=== PATIENT | female | born 1955 | race Caucasian/White ===

== ENCOUNTER 2016-09-06 09:09 | Inpatient (IN) | payer OTHER ==
[~2016-09-06] VITALS: Ht 157.5 cm; Wt 72.8 kg
[~2016-09-06 09:09] MED LIST: ASPI-496 PO; BACITRACIN 50,000 UNIT ONE; BIOT5CAP2 PO; BUPIVACAINE/PF-EPI 0.5% 1:200K ONE; CIPR500T3 PO; DICL100G29 TP; FERR325T20 PO; GABA600T2 PO; INUL1TAB4 PO; MULT-658 PO; NAPR500T3 PO; OMEG1CAP12 PO; OXYB5TAB7 PO; OXYC1TAB9 PO; PREG225C PO; THROMBIN 5,000 UNIT VIAL TP ONE; TIZA4CAP PO; VANCOMYCIN 1,000 MG ONE; ZONI50CA2 PO
[2016-09-06 09:39] VITALS: BP 132/87
[2016-09-06] MEDS ORDERED: LIDOCAINE 1%, 2ML ONE (09:41)
[2016-09-06] MEDS ORDERED: LACTATED RINGERS 1,000 ML IV SCH (09:59)
[2016-09-06] MEDS ORDERED: LIDOCAINE 1%, 2ML SQ PRN (10:00)
[2016-09-06] MEDS ORDERED: MIDAZOLAM 1 MG/ML, 2ML ONE (11:39)
[2016-09-06] MEDS ORDERED: FENTANYL PF 250 MCG/5ML ONE (11:39)
[2016-09-06] MEDS ORDERED: REMIFENTANIL 2 MG ONE (12:07)
[2016-09-06] MEDS ORDERED: CLINDAMYCIN 150 MG/ML, 6ML ONE (12:37)
[2016-09-06] MEDS ORDERED: ONDANSETRON 2MG/ML, 2ML ONE (12:45)
[2016-09-06] MEDS ORDERED: METOPROLOL 1 MG/ML, 5ML ONE (12:45)
[2016-09-06] MEDS ORDERED: METOCLOPRAMIDE 5 MG/ML, 2ML ONE (12:45)
[2016-09-06] MEDS ORDERED: PROPOFOL 10 MG/ML, 50ML ONE (12:45)
[2016-09-06] MEDS ORDERED: PHENYLEPHRINE 10 MG/ML ONE (12:45)
[2016-09-06] MEDS ORDERED: ROCURONIUM 10 MG/ML ONE (12:45)
[2016-09-06] MEDS ORDERED: DEXAMETHASONE 4 MG/ML, 5ML ONE (12:45)
[2016-09-06] MEDS ORDERED: MIDAZOLAM 1 MG/ML, 2ML IV PRN (13:30)
[2016-09-06] MEDS ORDERED: PROMETHAZINE 25 MG/ML, 1ML IV PRN (13:30)
[2016-09-06] MEDS ORDERED: OXYcodone 5 MG/5 ML ORAL.SOL UDC PO PRN (13:30)
[2016-09-06] MEDS ORDERED: MEPERIDINE/PF 25MG/0.5ML IVPush PRN (13:30)
[2016-09-06] MEDS ORDERED: HYDROmorphone 1 MG/ML, 1ML IV PRN (13:30)
[2016-09-06] MEDS ORDERED: LABETALOL 5MG/ML, 20ML IV PRN (13:30)
[2016-09-06] MEDS ORDERED: hydrALAzine 20 MG/ML, 1ML IV PRN (13:30)
[2016-09-06] MEDS ORDERED: ONDANSETRON 2MG/ML, 2ML IVPush PRN (13:30)
[2016-09-06] MEDS ORDERED: HEPARIN 1,000 UNITS/ML, 30ML IVPB ONE (15:08)
[2016-09-06] MEDS ORDERED: HEPARIN 1,000 UNITS/ML, 30ML ONE (15:12)
[2016-09-06] MEDS ORDERED: HYDROmorphone 2 MG/ML, 1ML ONE (15:56)
[2016-09-06] MEDS ORDERED: BACITRACIN 50,000 UNIT IRRIG ONE (16:09)
[2016-09-06] MEDS ORDERED: DIPHENHYDRAMINE 25 MG CAPSULE PO PRN (17:30)
[2016-09-06] MEDS ORDERED: DIAZEPAM 5 MG/ML, 2ML IVPush PRN (17:30)
[2016-09-06] MEDS ORDERED: DIPHENHYDRAMINE 50 MG/ML, 1ML IVPush PRN (17:30)
[2016-09-06] MEDS ORDERED: MAGNESIUM HYDROXIDE 8%, 30ML UDC PO PRN (17:30)
[2016-09-06] MEDS ORDERED: MORPHINE SULFATE 4 MG/ML, 1ML IVPush PRN (17:30)
[2016-09-06] MEDS ORDERED: BISACODYL 10 MG SUPP PR PRN (17:30)
[2016-09-06] MEDS ORDERED: PHARMACY MAY ADJ FOR RENAL FX MC PRN (17:30)
[2016-09-06] MEDS ORDERED: MEPERIDINE/PF 100 MG/ML IM PRN (17:30)
[2016-09-06] MEDS ORDERED: DIAZEPAM 5 MG TABLET PO PRN (17:30)
[2016-09-06] MEDS ORDERED: FENTANYL PF 100 MCG/2ML ONE (17:39)
[2016-09-06] MEDS ORDERED: HYDROmorphone PCA 30 MG/30 ML ONE (17:40)
[2016-09-06] MEDS ORDERED: OXYcodone 5 MG/5 ML ORAL.SOL UDC ONE (17:40)
[2016-09-06] MEDS: FENTANYL PF 100 MCG/2ML IV PRN ×2 (17:46→18:23)
[2016-09-06] MEDS: HYDROmorphone PCA 30 MG/30 ML IV PRN ×3 (17:51→22:56)
[2016-09-06 19:04] VITALS: BP 115/78
[2016-09-06] MEDS: NS + 20MEQ KCL 1,000 ML IV SCH ×2 (19:29→23:07)
[2016-09-06] MEDS ORDERED: GABAPENTIN 400 MG CAPSULE PO SCH (21:00)
[2016-09-06] MEDS: CLINDAMYCIN PMX 600MG/50ML 50 ML IV SCH (21:05)
[2016-09-06] MEDS: TIZANIDINE 4MG TABLET PO SCH (21:09)
[2016-09-06] MEDS: OXYBUTYNIN CHLORIDE 5 MG TABLET PO SCH (21:09)
[2016-09-06] MEDS: SODIUM CHLORIDE FLUSH 10ML SYR IVF SCH (21:11)
[2016-09-07] VITALS (8 sets, daily range): BP systolic 70–125; BP diastolic 45–82
[2016-09-07] MEDS ORDERED: SODIUM CHLORIDE 0.9%, 500ML IVBOLUS ONE
[2016-09-07 05:43] LABS: HEMOGLOBIN 10.3 g/dL (11.7-16.4)
[2016-09-07] MEDS: CLINDAMYCIN PMX 600MG/50ML 50 ML IV SCH (05:51)
[2016-09-07] MEDS: TIZANIDINE 4MG TABLET PO SCH ×3 (05:51→21:38)
[2016-09-07 05:54] LABS: BLOOD UREA NITROGEN 18 mg/dL (7-18)
[2016-09-07] MEDS: SODIUM CHLORIDE FLUSH 10ML SYR IVF SCH ×2 (08:06→21:00)
[2016-09-07] MEDS: ONDANSETRON 2MG/ML, 2ML IVPush PRN ×3 (08:11→21:38)
[2016-09-07] MEDS: ZONISAMIDE 50 MG CAPSULE PO SCH (09:45)
[2016-09-07] MEDS: GABAPENTIN 300 MG CAPSULE PO SCH ×3 (09:45→21:39)
[2016-09-07] MEDS: SENNA/DOCUSATE TABLET PO SCH (09:45)
[2016-09-07] MEDS: OXYBUTYNIN CHLORIDE 5 MG TABLET PO SCH ×2 (09:45→21:38)
[2016-09-07] MEDS: PROMETHAZINE 25 MG/ML, 1ML IM PRN ×2 (09:49→17:42)
[2016-09-07] MEDS: NS + 20MEQ KCL 1,000 ML IV SCH (12:41)
[2016-09-07] MEDS: OXYcodone/APAP 10/325MG TABLET PO PRN (13:57)
[2016-09-08] MEDS: NS + 20MEQ KCL 1,000 ML IV SCH ×3 (00:47→17:11)
[2016-09-08 02:33] VITALS: BP 109/57
[2016-09-08] MEDS: TIZANIDINE 4MG TABLET PO SCH ×3 (05:14→20:13)
[2016-09-08 05:40] LABS: HEMOGLOBIN 9.4 g/dL (11.7-16.4)
[2016-09-08 05:46] LABS: BLOOD UREA NITROGEN 13 mg/dL (7-18)
[2016-09-08 06:45] VITALS: BP 85/55
[2016-09-08] MEDS: SODIUM CHLORIDE FLUSH 10ML SYR IVF SCH ×2 (07:57→20:16)
[2016-09-08] MEDS: SENNA/DOCUSATE TABLET PO SCH (07:58)
[2016-09-08] MEDS: GABAPENTIN 300 MG CAPSULE PO SCH ×3 (07:58→20:13)
[2016-09-08] MEDS: ZONISAMIDE 50 MG CAPSULE PO SCH (07:58)
[2016-09-08] MEDS: OXYBUTYNIN CHLORIDE 5 MG TABLET PO SCH ×2 (07:58→20:13)
[2016-09-08] MEDS ORDERED: SODIUM CHLORIDE 0.9% 1,000ML IV ONE (11:00)
[2016-09-08 12:56] VITALS: BP 109/64
[2016-09-08 18:42] VITALS: BP 121/77
[2016-09-08] MEDS: OXYcodone/APAP 10/325MG TABLET PO PRN (19:38)
[2016-09-09] MEDS: OXYcodone/APAP 10/325MG TABLET PO PRN ×5 (00:38→22:05)
[2016-09-09 00:59] VITALS: BP 115/72
[2016-09-09] MEDS: NS + 20MEQ KCL 1,000 ML IV SCH ×2 (02:54→14:47)
[2016-09-09] MEDS: TIZANIDINE 4MG TABLET PO SCH ×3 (04:39→18:02)
[2016-09-09 05:47] LABS: HEMOGLOBIN 8.5 g/dL (11.7-16.4)
[2016-09-09 06:05] LABS: BLOOD UREA NITROGEN 10 mg/dL (7-18)
[2016-09-09 07:01] VITALS: BP 93/62
[2016-09-09] MEDS: ZONISAMIDE 50 MG CAPSULE PO SCH (08:26)
[2016-09-09] MEDS: SENNA/DOCUSATE TABLET PO SCH (08:26)
[2016-09-09] MEDS: OXYBUTYNIN CHLORIDE 5 MG TABLET PO SCH ×2 (08:27→22:04)
[2016-09-09] MEDS: GABAPENTIN 300 MG CAPSULE PO SCH ×3 (08:27→22:04)
[2016-09-09] MEDS: SODIUM CHLORIDE FLUSH 10ML SYR IVF SCH ×2 (08:27→22:07)
[2016-09-09 13:36] VITALS: BP 110/69
[2016-09-09 19:05] VITALS: BP 87/55
[2016-09-09 19:49] VITALS: BP 94/57
[2016-09-10 01:16] VITALS: BP 122/80
[2016-09-10] MEDS: OXYcodone/APAP 10/325MG TABLET PO PRN ×3 (03:49→10:17)
[2016-09-10] MEDS: TIZANIDINE 4MG TABLET PO SCH (05:32)
[2016-09-10 06:08] LABS: HEMOGLOBIN 8.9 g/dL (11.7-16.4)
[2016-09-10 06:26] LABS: BLOOD UREA NITROGEN 12 mg/dL (7-18)
[2016-09-10 06:50] VITALS: BP 90/64
[2016-09-10] MEDS: SENNA/DOCUSATE TABLET PO SCH (09:26)
[2016-09-10] MEDS: ZONISAMIDE 50 MG CAPSULE PO SCH (09:27)
[2016-09-10] MEDS: GABAPENTIN 300 MG CAPSULE PO SCH (09:27)
[2016-09-10] MEDS: SODIUM CHLORIDE FLUSH 10ML SYR IVF SCH (09:28)
[2016-09-10] MEDS: OXYBUTYNIN CHLORIDE 5 MG TABLET PO SCH (09:28)
[2016-09-10] MEDS: NS + 20MEQ KCL 1,000 ML IV SCH ×2 (10:00)
[2016-09-10] MEDS ORDERED: OXYC-229 PO (13:42)
[2016-09-10] MEDS ORDERED: TIZA4TAB9 PO (13:43)
== END 2016-09-10 14:04 | disposition home or self-care (01) | DRG 460 ==
LOC: ORIP 09:09 → 4NOR 18:57 → DCLOUNGE 09-10 13:35
PROVIDERS: ADMIT Neurological Surgery; ATTEND Neurological Surgery
PROC: 0SG1071 Fusion of 2 or more Lumbar Vertebral Joints with Autologous Tissue Substitute, Posterior Approach, Posterior Column, Open Approach (ICD-10-PCS; 2016-09-06)
PROC: 0QP004Z Removal of Internal Fixation Device from Lumbar Vertebra, Open Approach (ICD-10-PCS; 2016-09-06)
PROC: 0JPT0MZ Removal of Stimulator Generator from Trunk Subcutaneous Tissue and Fascia, Open Approach (ICD-10-PCS; 2016-09-06)
PROC: BR191ZZ Fluoroscopy of Lumbar Spine using Low Osmolar Contrast (ICD-10-PCS; 2016-09-06)
PROC: 00QT0ZZ Repair Spinal Meninges, Open Approach (ICD-10-PCS; 2016-09-06)
PROC: 01PY0MZ Removal of Neurostimulator Lead from Peripheral Nerve, Open Approach (ICD-10-PCS; 2016-09-06)
PROC: 01NB0ZZ Release Lumbar Nerve, Open Approach (ICD-10-PCS; principal; 2016-09-06 13:00)
DX: M48.06 Spinal stenosis, lumbar region (principal); G97.41 Accidental puncture or laceration of dura during a procedure; Z98.1 Arthrodesis status; M41.80 Other forms of scoliosis, site unspecified; G43.909 Migraine, unspecified, not intractable, without status migrainosus; M19.90 Unspecified osteoarthritis, unspecified site; Z85.528 Personal history of other malignant neoplasm of kidney; Z90.5 Acquired absence of kidney; Z90.710 Acquired absence of both cervix and uterus; Z90.49 Acquired absence of other specified parts of digestive tract; Z88.1 Allergy status to other antibiotic agents; Z82.61 Family history of arthritis; Z83.3 Family history of diabetes mellitus; Z82.3 Family history of stroke; Z82.49 Family history of ischemic heart disease and other diseases of the circulatory system; Z82.5 Family history of asthma and other chronic lower respiratory diseases
CPT/HCPCS: 36415; 72100; 77001; 80048; 85025; 86850; 86900; 95938; 95941; C1713; J1100; J1170; J1644; J2250; J2405; J2550; J2704; J3010; J3370; J3480; J3490; C1762; C1781; J2370; J2765; J7030; J7040; J7120

== ENCOUNTER 2018-04-03 12:30 | Emergency (ER) | payer OTHER ==
[~2018-04-03] VITALS: Ht 157.5 cm; Wt 73.7 kg
[~2018-04-03 12:30] MED LIST changes: -BACITRACIN 50,000 UNIT ONE; -BIOT5CAP2 PO; +BIOT5CAP3 PO; -BUPIVACAINE/PF-EPI 0.5% 1:200K ONE; +FERR325T18 PO; -FERR325T20 PO; +NAPR-685 PO; -NAPR500T3 PO; -OMEG1CAP12 PO; +OMEG1CAP23 PO; +OXYC-307 PO; +OXYC-432 PO; -OXYC1TAB9 PO; -THROMBIN 5,000 UNIT VIAL TP ONE; +TIZA4TAB9 PO; -VANCOMYCIN 1,000 MG ONE
[2018-04-03 13:48] VITALS: BP 120/73
[2018-04-03 14:01] LABS: MICROSCOPIC NOT IND
[2018-04-03 14:06] LABS: CULTURE INDICATED? NO
[2018-04-03 15:58] LABS: CLUE CELLS NONE SEEN (NONE SEEN); WET PREP WBCS MODERATE (FEW)
== END 2018-04-03 16:15 | disposition home or self-care (01) ==
LOC: ED 16:00
DX: N89.8 Other specified noninflammatory disorders of vagina (principal); Z90.49 Acquired absence of other specified parts of digestive tract
CPT/HCPCS: 81003; 87210; 87808; 99284

== ENCOUNTER → 2018-09-01 | Outpatient (CLI) | payer MEDICARE ==
[~2018-09-01] MED LIST changes: -GABA600T2 PO; +GABA600T7 PO; +OXYC-306 PO
[2018-09-01 11:15] LABS: MICROSCOPIC NOT IND
[2018-09-01 11:16] LABS: CULTURE INDICATED? NO
[2018-09-01 11:19] LABS: BASOPHILS # (AUTO) 0.04 x10^3/uL (0-0.1); BASOPHILS % (AUTO) 1 % (0-1); EOSINOPHILS # (AUTO) 0.19 x10^3/uL (0-0.4); EOSINOPHILS % (AUTO) 4 % (1-7); LYMPHOCYTES # (AUTO) 2.67 x10^3/uL (1-3.4); LYMPHOCYTES % (AUTO) 50 % (22-44); MD NO; MEAN CORPUSCULAR HEMOGLOBIN 28.4 pg (27.0-34.8); MEAN CORPUSCULAR HGB CONC 33.4 g/dL (32.4-35.8); MEAN CORPUSCULAR VOLUME 85.1 fL (80-100); MONOCYTES # (AUTO) 0.37 x10^3/uL (0.2-0.8); MONOCYTES % (AUTO) 7 % (2-9); NEUTROPHILS # (AUTO) 2.06 x10^3/uL (1.8-6.8); NEUTROPHILS % (AUTO) 39 % (42-75); PLATELET COUNT 364 x10^3/uL (130-400); RED BLOOD COUNT 4.03 x10^6/uL (3.82-5.3); RED CELL DISTRIBUTION WIDTH 14.1 % (9.6-15.2)
[2018-09-01 11:26] LABS: ANION GAP 6 mmol/L (5-15); CALCIUM 8.9 mg/dL (8.5-10.1); CHLORIDE 110 mmol/L (98-107); CREATININE 1.04 mg/dL (0.55-1.02)
[2018-09-01 11:38] LABS: INTERNATIONAL NORMALIZED RATIO 0.95 (0.93-1.1)
== END | disposition home or self-care (01) ==
LOC: STAR 09:53
PROVIDERS: ATTEND Neurological Surgery
DX: Z01.818 Encounter for other preprocedural examination (principal); M48.061 Spinal stenosis, lumbar region without neurogenic claudication
CPT/HCPCS: 36415; 71046; 80048; 81003; 85025; 85610; 85730; 93005

== ENCOUNTER 2018-10-08 10:58 | Inpatient (IN) | payer MEDICARE, OTHER ==
[~2018-10-08] VITALS: Ht 154.9 cm; Wt 76.4 kg
[~2018-10-08 10:58] MED LIST changes: +BACITRACIN 50,000 UNIT ONE; +BUPIVACAINE/PF 0.25% ONE; +EPINEPHRINE 1 MG/ML, 1ML ONE; +THROMBIN 5,000 UNIT VIAL TP ONE; +VANCOMYCIN 1,000 MG ONE
[2018-10-08] MEDS ORDERED: LACTATED RINGERS 1,000 ML IV SCH (11:09)
[2018-10-08] MEDS ORDERED: FENTANYL PF 250 MCG/5ML ONE ×2 (15:03)
[2018-10-08] MEDS ORDERED: MIDAZOLAM 1 MG/ML, 2ML ONE ×2 (15:03)
[2018-10-08] MEDS ORDERED: HEPARIN 1,000 UNITS/ML, 30ML ONE (15:04)
[2018-10-08] MEDS ORDERED: CLINDAMYCIN 150 MG/ML, 6ML ONE (15:23)
[2018-10-08] MEDS ORDERED: BUPIVACAINE/PF-EPI 0.25% 1:200K INFIL ONE ×2 (15:58→15:59)
[2018-10-08] MEDS ORDERED: DIAZEPAM 5 MG/ML, 2ML IVPush PRN (16:00)
[2018-10-08] MEDS ORDERED: OXYcodone 5 MG/5 ML ORAL.SOL UDC PO PRN (16:00)
[2018-10-08] MEDS ORDERED: HALOPERIDOL 5 MG/ML IV PRN (16:00)
[2018-10-08] MEDS ORDERED: ACETAMINOPHEN 325 MG TABLET PO PRN (16:00)
[2018-10-08] MEDS ORDERED: PROMETHAZINE 25 MG/ML, 1ML IV PRN (16:00)
[2018-10-08] MEDS ORDERED: MEPERIDINE/PF 25MG/0.5ML IVPush PRN (16:00)
[2018-10-08] MEDS ORDERED: hydrALAzine 20 MG/ML, 1ML IV PRN (16:00)
[2018-10-08] MEDS ORDERED: ROCURONIUM 10MG/ML,5ML ONE (16:05)
[2018-10-08] MEDS ORDERED: PROPOFOL 10 MG/ML, 20ML ONE (16:05)
[2018-10-08] MEDS ORDERED: PHENYLEPHRINE 10 MG/ML ONE (16:05)
[2018-10-08] MEDS ORDERED: LIDOCAINE-MPF 2% ,5ML ONE (16:05)
[2018-10-08] MEDS ORDERED: ONDANSETRON 2MG/ML, 2ML ONE (16:05)
[2018-10-08] MEDS ORDERED: DEXAMETHASONE 4 MG/ML, 1ML ONE (16:05)
[2018-10-08] MEDS ORDERED: FENTANYL PF 100 MCG/2ML ONE ×3 (17:12→18:32)
[2018-10-08] MEDS ORDERED: OXYcodone 5 MG/5 ML ORAL.SOL UDC ONE (17:23)
[2018-10-08] MEDS ORDERED: HYDROmorphone 2 MG/ML, 1ML ONE (17:23)
[2018-10-08] MEDS ORDERED: HYDROmorphone PCA 30 MG/30 ML IV PRN (17:30)
[2018-10-08] MEDS: HYDROmorphone 2 MG/ML, 1ML IVPush PRN ×4 (17:33→17:57)
[2018-10-08] MEDS: FENTANYL PF 100 MCG/2ML IV PRN ×2 (17:40→17:48)
[2018-10-08 18:30] VITALS: BP 123/74
[2018-10-08] MEDS ORDERED: PHARMACY MAY ADJ FOR RENAL FX MC PRN (19:00)
[2018-10-08] MEDS ORDERED: HYDROcodone/APAP 10/325 MG TABLET PO PRN (19:30)
[2018-10-08] MEDS ORDERED: morphine SULFATE 10 MG/ML, 1ML IV PRN (19:30)
[2018-10-08] MEDS ORDERED: MAGNESIUM HYDROXIDE 8%, 30ML UDC PO PRN (19:30)
[2018-10-08] MEDS ORDERED: ONDANSETRON 2MG/ML, 2ML IV PRN (19:30)
[2018-10-08] MEDS ORDERED: DIPHENHYDRAMINE 50 MG/ML, 1ML IVPush PRN (19:30)
[2018-10-08] MEDS ORDERED: PROMETHAZINE 25 MG/ML, 1ML IM PRN (19:30)
[2018-10-08] MEDS ORDERED: DIPHENHYDRAMINE 25 MG CAPSULE PO PRN (19:30)
[2018-10-08] MEDS: NS + 20MEQ KCL 1,000 ML IV SCH (19:30)
[2018-10-08] MEDS ORDERED: BISACODYL 10 MG SUPP PR PRN (19:30)
[2018-10-08] MEDS: CLINDAMYCIN PMX 600MG/50ML 50 ML IV SCH (20:58)
[2018-10-09] MEDS ORDERED: SODIUM CHLORIDE 0.9% 1,000 ML IVBOLUS PRN (00:18)
[2018-10-09 01:05] VITALS: BP 110/71
[2018-10-09 03:59] VITALS: BP 111/74
[2018-10-09 05:04] LABS: BASOPHILS % (AUTO) 0 % (0-1); EOSINOPHILS % (AUTO) 0 % (1-7); LYMPHOCYTES # (AUTO) 0.66 x10^3/uL (1-3.4); LYMPHOCYTES % (AUTO) 7 % (22-44); MD NO; MEAN CORPUSCULAR HEMOGLOBIN 28.1 pg (27.0-34.8); MEAN CORPUSCULAR HGB CONC 32.7 g/dL (32.4-35.8); MEAN PLATELET VOLUME 6.8 fL (7.4-10.4); MONOCYTES # (AUTO) 0.34 x10^3/uL (0.2-0.8); MONOCYTES % (AUTO) 4 % (2-9); NEUTROPHILS # (AUTO) 8.55 x10^3/uL (1.8-6.8); NEUTROPHILS % (AUTO) 90 % (42-75); PLATELET COUNT 278 x10^3/uL (130-400); RED CELL DISTRIBUTION WIDTH 14.9 % (9.6-15.2)
[2018-10-09 05:12] LABS: ANION GAP 6 mmol/L (5-15); CHLORIDE 112 mmol/L (98-107)
[2018-10-09] MEDS: CLINDAMYCIN PMX 600MG/50ML 50 ML IV SCH ×3 (05:29→20:02)
[2018-10-09] MEDS: NS + 20MEQ KCL 1,000 ML IV SCH ×2 (05:30→20:00)
[2018-10-09] MEDS ORDERED: HYDROmorphone PCA 30 MG/30 ML IV PRN (06:30)
[2018-10-09 08:26] VITALS: BP 105/71
[2018-10-09] MEDS: SENNA/DOCUSATE TABLET PO SCH (08:43)
[2018-10-09] MEDS: OXYcodone/APAP 10/325MG TABLET PO PRN ×3 (10:09→20:02)
[2018-10-09 15:18] VITALS: BP 90/60
[2018-10-09 18:54] VITALS: BP 112/76
[2018-10-10] MEDS: OXYcodone/APAP 10/325MG TABLET PO PRN ×6 (00:03→22:18)
[2018-10-10 01:40] VITALS: BP 100/65
[2018-10-10] MEDS: CLINDAMYCIN PMX 600MG/50ML 50 ML IV SCH ×3 (04:13→20:17)
[2018-10-10 05:35] LABS: BASOPHILS # (AUTO) 0.02 x10^3/uL (0-0.1); BASOPHILS % (AUTO) 0 % (0-1); EOSINOPHILS % (AUTO) 0 % (1-7); LYMPHOCYTES # (AUTO) 1.43 x10^3/uL (1-3.4); LYMPHOCYTES % (AUTO) 18 % (22-44); MD NO; MEAN CORPUSCULAR HEMOGLOBIN 28.4 pg (27.0-34.8); MEAN CORPUSCULAR HGB CONC 33.3 g/dL (32.4-35.8); MEAN CORPUSCULAR VOLUME 85.3 fL (80-100); MEAN PLATELET VOLUME 7.1 fL (7.4-10.4); MONOCYTES # (AUTO) 0.56 x10^3/uL (0.2-0.8); MONOCYTES % (AUTO) 7 % (2-9); NEUTROPHILS # (AUTO) 5.82 x10^3/uL (1.8-6.8); NEUTROPHILS % (AUTO) 74 % (42-75); PLATELET COUNT 249 x10^3/uL (130-400); RED BLOOD COUNT 2.77 x10^6/uL (3.82-5.3); RED CELL DISTRIBUTION WIDTH 15.6 % (9.6-15.2)
[2018-10-10 05:46] LABS: ANION GAP 6 mmol/L (5-15); CALCIUM 8.2 mg/dL (8.5-10.1); CHLORIDE 110 mmol/L (98-107); CREATININE 0.81 mg/dL (0.55-1.02)
[2018-10-10] MEDS: NS + 20MEQ KCL 1,000 ML IV SCH ×2 (06:00→16:00)
[2018-10-10] MEDS: SENNA/DOCUSATE TABLET PO SCH (09:01)
[2018-10-10 09:36] VITALS: BP 123/80
[2018-10-10 12:53] VITALS: BP 124/80
[2018-10-10 19:29] VITALS: BP 125/83
[2018-10-11 01:44] VITALS: BP 120/79
[2018-10-11] MEDS: NS + 20MEQ KCL 1,000 ML IV SCH ×2 (01:44→07:19)
[2018-10-11] MEDS: CLINDAMYCIN PMX 600MG/50ML 50 ML IV SCH (04:00)
[2018-10-11 05:04] LABS: BASOPHILS # (AUTO) 0.03 x10^3/uL (0-0.1); BASOPHILS % (AUTO) 0 % (0-1); EOSINOPHILS % (AUTO) 0 % (1-7); LYMPHOCYTES # (AUTO) 1.66 x10^3/uL (1-3.4); LYMPHOCYTES % (AUTO) 21 % (22-44); MD NO; MEAN CORPUSCULAR HEMOGLOBIN 28.1 pg (27.0-34.8); MEAN CORPUSCULAR HGB CONC 32.7 g/dL (32.4-35.8); MEAN PLATELET VOLUME 7.1 fL (7.4-10.4); MONOCYTES # (AUTO) 0.55 x10^3/uL (0.2-0.8); MONOCYTES % (AUTO) 7 % (2-9); NEUTROPHILS # (AUTO) 5.66 x10^3/uL (1.8-6.8); NEUTROPHILS % (AUTO) 72 % (42-75); PLATELET COUNT 299 x10^3/uL (130-400); RED BLOOD COUNT 3.02 x10^6/uL (3.82-5.3); RED CELL DISTRIBUTION WIDTH 15.7 % (9.6-15.2)
[2018-10-11 05:12] LABS: ANION GAP 6 mmol/L (5-15); CALCIUM 8.5 mg/dL (8.5-10.1); CHLORIDE 109 mmol/L (98-107); CREATININE 0.86 mg/dL (0.55-1.02)
[2018-10-11 06:25] VITALS: BP 128/81
[2018-10-11] MEDS: OXYcodone/APAP 10/325MG TABLET PO PRN (06:44)
[2018-10-11] MEDS: SENNA/DOCUSATE TABLET PO SCH (08:09)
[2018-10-11] MEDS ORDERED: OXYC-307 PO (09:20)
[2018-10-11 10:15] VITALS: BP 132/78
== END 2018-10-11 10:20 | disposition home or self-care (01) | DRG 460 ==
LOC: OUT 10:58 → 4NOR 18:33 → OUT 23:20
PROVIDERS: ADMIT Neurological Surgery; ATTEND Neurological Surgery
PROC: 0QB00ZZ Excision of Lumbar Vertebra, Open Approach (ICD-10-PCS; 2018-10-08)
PROC: 0SP004Z Removal of Internal Fixation Device from Lumbar Vertebral Joint, Open Approach (ICD-10-PCS; 2018-10-08)
PROC: 0SH004Z Insertion of Internal Fixation Device into Lumbar Vertebral Joint, Open Approach (ICD-10-PCS; 2018-10-08)
PROC: 3E0U0GB Introduction of Recombinant Bone Morphogenetic Protein into Joints, Open Approach (ICD-10-PCS; 2018-10-08)
PROC: 0SG0071 Fusion of Lumbar Vertebral Joint with Autologous Tissue Substitute, Posterior Approach, Posterior Column, Open Approach (ICD-10-PCS; principal; 2018-10-08 14:30)
DX: M48.061 Spinal stenosis, lumbar region without neurogenic claudication (principal); M41.9 Scoliosis, unspecified; M51.36 Other intervertebral disc degeneration, lumbar region; Z88.8 Allergy status to other drugs, medicaments and biological substances; Z98.1 Arthrodesis status; Z90.710 Acquired absence of both cervix and uterus; M19.90 Unspecified osteoarthritis, unspecified site; Z85.528 Personal history of other malignant neoplasm of kidney; Z98.84 Bariatric surgery status; Z88.6 Allergy status to analgesic agent; Z83.3 Family history of diabetes mellitus; Z82.61 Family history of arthritis; Z82.49 Family history of ischemic heart disease and other diseases of the circulatory system; Z84.89 Family history of other specified conditions; Z82.3 Family history of stroke
CPT/HCPCS: 36415; 72100; 80048; 85014; 85018; 85025; 95938; 95941; C1713; G0378; J0171; J1100; J1170; J1644; J2250; J2405; J2704; J3010; J3370; J3480; J3490; C1762; J2370; J7120